=== PATIENT | female | born 1965 | race Two or more races ===

== ENCOUNTER → 2018-01-19 | Outpatient (CLI) | payer BC ==
[2018-01-19 12:50] LABS: Basophils % (A) 1 %; Eosinophils # (A) 0.1 k/uL (0-0.7); Eosinophils % (A) 2 %; HCT 42.5 % (34.0-46.0); HGB 14.3 gm/dL (11.4-16.0); Lymphocytes % (A) 35 %; MCH 31.9 pg (25.0-35.0); MCHC 33.7 g/dL (31.0-37.0); MCV 94.6 fL (80.0-100.0); Mean Platelet Volume 7.8; Monocytes # (A) 0.3 k/uL (0-1.0); Monocytes % (A) 6 %; Neutrophils # (A) 3.1 k/uL (1.3-7.7); Neutrophils % (A) 55 %; Platelet Count 162 k/uL (150-450); RBC 4.49 m/uL (3.80-5.40); RDW 12.7 % (11.5-15.5); WBC 5.7 k/uL (3.8-10.6)
[2018-01-19 20:53] LABS: Albumin 4.9 g/dL (3.80-4.90); Albumin/Globulin Ratio 2.88 (1.20-2.10); Anion Gap 7.9 mmol/L (4.00-12.00); Calcium 9.7 mg/dL (8.7-10.3); Carbon Dioxide 26.1 mmol/L (21.6-31.8); Globulin 1.7 g/dL (2.1-3.7); Potassium 4.5 mmol/L (3.5-5.5); Total Bilirubin 0.5 mg/dL (0.2-1.2); Total Protein 6.6 g/dL (6.2-8.2)
== END | disposition home or self-care (01) ==
LOC: LABWHC1 12:18
PROVIDERS: ATTEND Family Medicine
DX: Z00.00 Encounter for general adult medical examination without abnormal findings (principal)
CPT/HCPCS: 36415; 80053; 80061; 84443; 85025

== ENCOUNTER → 2018-02-19 | Outpatient (CLI) | payer BC ==
--- NOTE | 2018-02-19 08:29 | US ---
EXAMINATION TYPE: US pelvis complete transvag DATE OF EXAM: 02/19/2018 COMPARISON: NONE CLINICAL HISTORY: R14.0 Pelvic Bloating. Difficult and limited exam due to overlying bowel gas TECHNIQUE: . Transabdominal sonographic images of the pelvis were acquired. Transvaginal sonographi c images were medically necessary to better assess the following anatomy: ovaries Date of LMP: 2007 EXAM MEASUREMENTS: Uterus: Surgically absent Endometrial Stripe: Surgically absent Right Ovary: 2.4 x 1.4 x 1.3 cm Left Ovary: Not visualized due to bowel gas 1. Uterus: Surgically absent 2. Endometrium: Surgically absent 3. Right Ovary: wnl 4. Left Ovary: Obscured by overlying bowel gas 5. Bilateral Adnexa: wnl 6. Posterior cul-de-sac: wnl IMPRESSION: 1. Right ovary is visualized and appears within normal limits. 2. Nonvisualization of the left ovary and surgical absence of the uterus.
== END | disposition home or self-care (01) ==
LOC: RADUSWWP 07:08
PROVIDERS: ATTEND Family Medicine
DX: R14.0 Abdominal distension (gaseous) (principal); Z90.710 Acquired absence of both cervix and uterus
CPT/HCPCS: 76830; 76856

== ENCOUNTER → 2018-12-17 | Outpatient (CLI) | payer BC ==
--- NOTE | 2018-12-19 09:15 | MM ---
Reason for exam: screening (asymptomatic). Last mammogram was performed 2 years and 2 months ago. Physical Findings: A clinical breast exam by your physician is recommended on an annual basis and results should be correlated with mammographic findings. MG Screening Mammo w CAD Bilateral CC and MLO view(s) were taken. Prior study comparison: October 04, 2016, mammogram, performed at [facility]. The breast tissue is heterogeneously dense. This may lower the sensitivity of mammography. Prominent bilateral axillary nodes are unchanged. Superior right breast asymmetric densities more defined. Central left CC view asymmetric density just lateral to the retroareolar plane. ASSESSMENT: Incomplete: need additional imaging evaluation, BI-RAD 0 RECOMMENDATION: Special view mammogram of both breasts. (3D) If lesion persists on supplemental views, image directed ultrasound is recommended. [facility] will attempt to contact patient to return for supplemental views and ultrasound if indicated.
== END | disposition home or self-care (01) ==
LOC: RADMAMWWP 13:34
PROVIDERS: ATTEND Obstetrics & Gynecology
DX: Z12.31 Encounter for screening mammogram for malignant neoplasm of breast (principal)
CPT/HCPCS: 77067